=== PATIENT | female | born 1975 | race Caucasian/White ===

== ENCOUNTER 2017-04-23 16:54 | Inpatient (IN) | payer OTHER ==
[~2017-04-23] VITALS: Ht 157.5 cm; Wt 77.6 kg
--- NOTE | ~2017-04-23 | PN ---
Unit #: [id number] #: [id number] Patient: NIGEL SHEN [id number] [facility] [address] [place] [address] [id number] I MR#: [id number] NAME: NIGEL SHEN. ROOM: [facility] Age: 41 Sex: F Admission Date: 04/23/2017 : 1975 Attending Physician: Darien Braden M.D. Admitting Physician: Darien Braden M.D. Primary Care Physician: Primary Care Physician Kourtney TAM PROGRESS NOTES DATE 04/22/2017 DISCUSSION The patient remains seclusive to room but states that she has attended "three groups". She is reporting some reduction of suicidal ideation and has decided to return to live with her mother following discharge. Should she sustain progress discharge will likely take place tomorrow. Dictated by... Darien Braden M.D. CB/jose luis TD: 04/27/2017 22:22 JOB #: [id number] [facility] PROGRESS NOTES Page 1 of 1 X Darien Braden MD PROGRESS NOTE
--- NOTE | ~2017-04-23 | CO ---
Unit #: [id number] #: [id number] Patient: NIGEL SHEN [id number] [facility] [address] [place] [address] [id number] I MR#: [id number] NAME: NIGEL SHEN. ROOM: P179 Age: 41 Sex: F Admission Date: 04/23/2017 : 1975 Attending Physician: Darien Braden M.D. Primary Care Physician: Primary Care Physician No Consultation Date: 04/26/2017 CONSULTATION REPORT SUBJECTIVE Nigel is 41-year-old who gives history of HIV diagnosed 12 years ago and AIDS diagnosed 3 years ago. She had been involved in the [facility] and was complaint with antiviral agents for a short period. She has not used any antiviral agents for 4 years. After a long and lengthy discussion with this very nice young woman, she does not wish to resume any kind of antiviral agents. She is aware of the programs here in [place] that can help her and provide for her the necessary medications, but she again declines. She also knows that should she change her mind that a simple phone call to any of these agencies/facilities would get her the help that she needs. Dictated by... Stephy Payne P.A.-C. for Melania Cotter/galen TD: 04/27/2017 19:38 JOB #: [id number] CONSULTATION REPORT Page 1 of 1 X Stephy Payne CONSULTATION REPORT
--- NOTE | ~2017-04-23 | PN ---
Unit #: [id number] #: [id number] Patient: NIGEL SHEN [id number] [facility] [address] [place] [address] [id number] I MR#: [id number] NAME: NIGEL SHEN. ROOM: P179 Age: 41 Sex: F Admission Date: 04/23/2017 : 1975 Attending Physician: Darien Braden M.D. Admitting Physician: Darien Braden M.D. Primary Care Physician: Primary Care Physician Kourtney TAM PROGRESS NOTES DATE 04/26/2017 DISCUSSION The patient is abed today, stating that she is still unable to participate in programming, she seems convinced that this facility will find a place for her to stay following discharge and I have dispossessed of that belief during today's interview. She states that she does not wish to take Prozac and this medication will be discontinued, we will continue Zyprexa monotherapy. Dictated by... Darien Braden M.D. CB/merly TD: 04/27/2017 06:16 JOB #: [id number] [facility] PROGRESS NOTES Page 1 of 1 X Darien Braden MD PROGRESS NOTE
--- NOTE | ~2017-04-23 | HP ---
Unit #: [id number] #: [id number] Patient: DEE SHEN [id number] [place] [address] [id number] I MR#: [id number] NAME: DEE SHEN. ROOM: P179 Age: 41 Sex: F Admission Date: 04/23/2017 : 1975 Attending Physician: Darien Braden M.D. Admitting Physician: Darien Braden M.D. Primary Care Physician: Primary Care Physician No HISTORY AND PHYSICAL HISTORY OF PRESENT ILLNESS Dee is a 41-year-old female admitted on 04/23/2017 to [facility] for attempted suicide by overdosing on heroin. PAST MEDICAL HISTORY 1. AIDS, she reports that she was diagnosed with HIV 12 years ago and AIDS 3 years ago. 2. COPD. 3. CHF. PAST SURGICAL HISTORY 1. Appendectomy. 2. section x2. 3. Perianal abscess repair. 4. Bilateral hand surgery. ALLERGIES Codeine, morphine, penicillin, erythromycin and Tegretol. SOCIAL HISTORY He smokes 3 packs of cigarettes daily. Occasional alcohol use and a history of illegal drug use, most recently she tried to overdose on heroin. She is currently single and living with her mother. FAMILY HISTORY Noncontributory. REVIEW OF SYSTEMS CONSTITUTIONAL: No fever or chills. HEENT: Denies any sore throat, ear pain or runny nose. CARDIOVASCULAR: Denies chest pain, irregular heart rhythm or palpitations. CHEST: Denies shortness of breath or cough. No hemoptysis. GASTROINTESTINAL: Denies nausea, vomiting, diarrhea or chronic constipation. ENDOCRINE: Denies history of increased thirst or urination. No recent significant weight loss or gain. GENITOURINARY: Denies dysuria, frequency, or hematuria. SKIN: Denies any rashes. HEMATOLOGIC: Denies history of increased bleeding or bruising. MUSCULOSKELETAL: Denies any hot, swollen joints. No generalized muscle pain. NEUROLOGIC: Denies problems with vision or speech. No frequent, severe headaches. No numbness, tingling or weakness in any extremities. Denies Unit #: [id number] #: [id number] Patient: DEE SHEN loss of bladder or bowel control. CURRENT MEDICATIONS None. PHYSICAL EXAMINATION GENERAL: Alert, oriented, in no acute distress. VITAL SIGNS: Blood pressure 110/72, heart rate 84, respirations 16. HEIGHT: 5 feet 2. WEIGHT: 171 pounds. SKIN: Warm and dry without rash or lesion. HEENT: Normocephalic. TMs not viewed. Oral and nasal passages clear. Conjunctivae clear. PERRLA. EOMs intact. NECK: Supple without lymphadenopathy or thyromegaly. HEART: Regular rate and rhythm without murmur. LUNGS: Clear. ABDOMEN: Soft, nontender, without masses or hepatosplenomegaly. : Not done. EXTREMITIES: No evidence of cyanosis, clubbing or edema. Moves all without focal deficit. NEUROLOGICAL: Grossly within normal limits. Cranial Nerves: II: Visual rinaldi are intact. III, IV AND : Extraocular movements are intact. Pupils are equal, round and reactive to light. V: Facial sensation is grossly normal. VII: Facial movements and expression are normal. VIII: Auditory acuity grossly intact. IX, X: Uvula is midline. Phonation is normal. XI: Patient shrugs shoulders and turns head normally. XII: Tongue protrudes in the midline. Sensory and Motor Function: Sensory and motor sensation is grossly normal. Motor: moves all extremities well. Coordination: Gait is normal. Deep Tendon Reflexes: Intact. IMPRESSION 1. Psychiatric admission. 2. AIDS. 3. COPD. 4. CHF. RECOMMENDATIONS PSYCHIATRIC: Per psychiatrist. MEDICAL: No contraindication to participate in facility's activities. Medical consult was placed for evaluation of HIV, AIDS. MEDICAL PROGNOSIS Good. MEDICAL CONDITION Stable. Dictated by... Anant Fortune/guicho Unit #: [id number] #: [id number] Patient: DEE SHEN TD: 04/24/2017 16:13 JOB #: [id number] HISTORY AND PHYSICAL Page 1 of 1 X ANGELINE SCHULZ APRN X HISTORY AND PHYSICAL
--- NOTE | ~2017-04-23 | CO ---
Unit #: [id number] #: [id number] Patient: DEE SHEN [id number] [place] [address] [id number] I MR#: [id number] NAME: DEE SHEN. ROOM: [facility] Age: 41 Sex: F Admission Date: 04/23/2017 : 1975 Attending Physician: Darien Braden M.D. Primary Care Physician: Primary Care Physician No Consultation Date: 04/24/2017 CONSULTATION REPORT HISTORY OF PRESENT ILLNESS Ashely is a 41-year-old female, who reports being diagnosed with HIV 12 years ago and then 3 years ago she does not take any medications and has not followed primary care provider or any specialty clinics. There was some concern that according to this diagnosis are false; therefore, she is being seen for evaluation. PHYSICAL EXAMINATION CARDIAC: Regular rate and rhythm. No murmurs, gallops, or rubs. RESPIRATORY: Clear to auscultation bilaterally. ASSESSMENT AND PLAN Possible human immunodeficiency virus versus acquired immunodeficiency syndrome. Due to the patient's unreliability, we will begin with fourth generation HIV test. If positive, we will obtain further testing including CD4 count. The patient has expressed to me, however, that she does not want any treatment, so we will discuss that further depending on test results. Dictated by... Anant Fortune/galen TD: 04/25/2017 03:37 JOB #: [id number] CONSULTATION REPORT Page 1 of 1 X ANGELINE SCHULZ APRN X CONSULTATION REPORT
--- NOTE | ~2017-04-23 | DS ---
Unit #: [id number] #: [id number] Patient: NIGEL SHEN [id number] [place] [address] [id number] I MR#: [id number] NAME: NIGEL SHEN. ROOM: [facility] Age: 41 Sex: F Admission Date: 04/23/2017 : 1975 Discharge Date: 04/28/2017 Attending Physician: Darien Braden M.D. Primary Care Physician: Primary Care Physician No DISCHARGE SUMMARY REASON FOR ADMISSION The patient is a 40-year-old single white female, admitted with suicidal ideation. HOSPITAL COURSE The patient was admitted to the [facility] unit and placed on suicide precautions. She was initially started on no medications as it was the feeling of this physician that some of her mood symptoms were probably related to her recent abuse of cocaine. The patient did report a history of diagnosis of a bipolar spectrum disorder and this physician did initiate Prozac and Zyprexa. The patient, however, declined Prozac, reporting a history of poor response to this medication. She did comply with Zyprexa. She participated slightly more within the therapeutic milieu and by 04/28/2017, was in brighter spirits and denied suicidal ideation. She requested discharge on that date. The patient does state that she is "AIDS positive" and a medical consult was ordered. The patient stated that she did not wish to restart any antiretroviral medications during her stay in the hospital. She will be referred back for community mental health resources. FINAL DIAGNOSES Bipolar disorder, most recent episode depressed; cocaine use disorder; acquired immunodeficiency syndrome per patient history. DISPOSITION ON DISCHARGE The patient is discharged on the following medications; Zyprexa 5 mg at bedtime for mood stabilization. DISCHARGE INSTRUCTIONS No dietary or physical restrictions were placed on the patient at the time of discharge. PROGNOSIS Her prognosis is considered fair. Dictated by... Darien Braden M.D. CB/galen TD: 04/29/2017 00:18 JOB #: [id number] Unit #: [id number] #: [id number] Patient: NIGEL SHEN DISCHARGE SUMMARY Page 1 of 1 X Darien Braden MD X DISCHARGE SUMMARY
--- NOTE | ~2017-04-23 | CO ---
Unit #: [id number] #: [id number] Patient: NIGEL SHEN [id number] [place] [address] [id number] I MR#: [id number] NAME: NIGEL SHEN ROOM: [facility] Age: 41 Sex: F Admission Date: 04/23/2017 : 1975 Attending Physician: Darien Braden M.D. Primary Care Physician: Primary Care Physician No Consultation Date: 04/25/2017 CONSULTATION REPORT HISTORY OF PRESENT ILLNESS Nigel is a 41-year-old female, who has a history of AIDS, however, there was some concern that this may not be an accurate diagnosis. Yesterday, fourth generation HIV test was positive for HIV. Yesterday, she was refusing any treatment and she again today is refusing to receive any treatment. She does not wish to follow up with primary care or specialist and currently has no complaints. PHYSICAL EXAMINATION CARDIAC: Regular rate and rhythm. No murmur, gallop, or rub. RESPIRATORY: Clear to auscultation bilaterally. ASSESSMENT AND PLAN Human immunodeficiency virus positive. We will obtain a CD4 count and a viral load. At this time, the patient is continuing to refuse treatment, so we will evaluate the need for isolation depending on what blood level show. Dictated by... Anant Fortune/galen TD: 04/27/2017 02:46 JOB #: [id number] CONSULTATION REPORT Page 1 of 1 X ANGELINE SCHULZ APRN X CONSULTATION REPORT
--- NOTE | ~2017-04-23 | PN ---
Unit #: [id number] #: [id number] Patient: DEE SHEN [id number] [facility] [address] [place] [address] [id number] I MR#: [id number] NAME: DEE SHEN. ROOM: [facility] Age: 41 Sex: F Admission Date: 04/23/2017 : 1975 Attending Physician: Darien Braden M.D. Admitting Physician: Darien Braden M.D. Primary Care Physician: Primary Care Physician Kourtney TAM PROGRESS NOTES DATE 04/25/2017 DISCUSSION today regarding suicidal ideation. The patient reports that the suicidal thought are always are "always present". I will begin a trial of Prozac and Zyprexa in hopes of addressing the patient's current depressive symptoms and have encouraged her to increase her participation programming. Dictated by... Darien Braden M.D. CB/jose luis TD: 04/26/2017 00:37 JOB #: [id number] [facility] PROGRESS NOTES Page 1 of 1 X Darien Braden MD PROGRESS NOTE
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
[2017-04-24 13:37] LABS: ALBUMIN SERUM 3.3 g/dL (3.5-5.0); BILIRUBIN,TOTAL 0.7 mg/dL (0.2-2.0); BUN/CREATININE RATIO 12.85; CALCIUM SERUM 8.1 mg/dL (8.4-10.2); CREATININE SERUM 0.7 mg/dL (0.6-1.4); GLOM FILT RATE Estimated 107.6 mL/min (>60); POTASSIUM 4.1 mmol/L (3.5-5.1); PROTEIN TOTAL SERUM 6.5 g/dL (6.0-8.3)
[2017-04-24 14:03] LABS: BASOPHIL% 1.6 % (0-2.5); EOSINOPHIL# 0.3 X10e3 (0-0.7); EOSINOPHIL% 11.7 % (0.0-7.0); HEMATOCRIT 35.3 % (35.0-45.0); HEMOGLOBIN 11.7 gm/dL (12.0-16.0); LYMPHOCYTE# 0.6 X10e3 (1.0-3.5); MEAN CELL VOLUME 83.4 FL (83-96); MEAN CORPUSCULAR HEMOGLOBIN 27.6 PG (28-34); MEAN CORPUSCULAR HGB CONC 33.1 g/dL (30-36); MEAN PLATELET VOLUME 8.1 FL (6.5-11.5); MONOCYTE# 0.3 X10e3 (0-1.0); MONOCYTE% 14.5 % (3.0-12.0); NEUTROPHIL# 1.1 X10e3 (1.5-7.1); NEUTROPHIL% 47.2 % (40-75); PLATELET COUNT 218 X10e3 (140-420); RED BLOOD COUNT 4.23 X10e (3.90-5.30); RED CELL DISTRIBUTION WIDTH 16.3 % (11.0-15.5); WHITE BLOOD COUNT 2.3 X10e3 (4.0-10.5)
[2017-04-24 14:21] LABS: DIFF IND YES
[2017-04-24 17:18] LABS: ANISOCYTOSIS SL; PLATELET ESTIMATE NORMAL (NORMAL)
[2017-04-24 17:21] LABS: OVALOCYTES PRESENT
[2017-04-27 12:54] LABS: URINE APPEARANCE CLEAR; URINE BILIRUBIN NEG (NEG); URINE BLOOD NEG (NEG); URINE COLOR YELLOW; URINE GLUCOSE NEG (NEG); URINE KETONE NEG (NEG); URINE LEUKOCYTE ESTERASE TRACE (NEG); URINE NITRATE NEG (NEG); URINE PROTEIN NEG (NEG)
[2017-04-27 13:00] LABS: URBCS1 AUWI 0-2 /[HPF] (0-2); URINE BACTERIA AUWI NEG (NEGATIVE); URINE SQUAMOUS EPITHELIAL CELL OCC /[HPF]; UWBCS1 AUWI 0-2 (0-5)
[2017-04-27 13:33] LABS: AMPHETAMINE NEG (NEG); BARBITURATES NEG (NEG); BENZODIAZEPINES NEG (NEG); COCAINE POS (NEG); MARIJUANA NEG (NEG); OPIATES NEG (NEG); TRICYCLIC ANTIDEPRESSANTS NEG (NEG); U METHADONE NEG (NEG)
[2017-04-28 20:15] LABS: HIV1 LOG COPIES/ML 5.56 (<1.30)
[2017-04-29 09:41] LABS: CD4 % (PNL) 8 % (30-61)
== END 2017-04-28 15:56 | DRG 885 ==
LOC: P1E 18:46
PROVIDERS: Specialist
DX: F31.9 Bipolar disorder, unspecified (principal); B20 Human immunodeficiency virus [HIV] disease; R45.851 Suicidal ideations; F11.10 Opioid abuse, uncomplicated; F14.10 Cocaine abuse, uncomplicated; Z88.0 Allergy status to penicillin; E66.9 Obesity, unspecified; F17.210 Nicotine dependence, cigarettes, uncomplicated
CPT/HCPCS: 80053; 80307; 81003; 82947; 85025; 86361; 86701; 86702; 87536; 87806